=== PATIENT | male | born 1965 | race Caucasian/White ===

== ENCOUNTER 2025-04-08 08:24 | Inpatient (IN) | payer OTHER ==
[2025-04-08] VITALS (8 sets, daily range): BP systolic 124–131; BP diastolic 79–86; PULSE 87–99; RESP 18–20; TEMP 36.2–36.8; O2SAT 96–97
[~2025-04-08] VITALS: Ht 162.6 cm; Wt 50.9 kg
[~2025-04-08 08:24] MED LIST: ASPI-1497 PO; ATOR-388 PO; COR3 PO; GABA-1180 PO; TRAM50TA3 PO
[2025-04-08 08:58] LABS: BASOPHILS % 1.0 % (0.0-2.0); EOSINOPHILS % 3.1 % (0.0-5.0); HEMATOCRIT. 43.4 % (42.0-52.0); HEMOGLOBIN. 14.4 g/dL (14.0-18.0); LYMPHOCYTES % 11.0 % (20.0-50.0); MEAN PLATELET VOLUME 8.2 fl (7.4-10.4); MONOCYTES % 9.2 % (2.0-8.0); NEUTROPHILS % 75.7 % (40.0-76.0); PLATELET 254 x1000/uL (130-400); RED BLOOD CELL COUNT 4.85 mill/uL (4.7-6.1); RED CELL DISTRIBUTION WIDTH 13.9 % (11.6-14.6)
[2025-04-08] MEDS: FAMOTIDINE 20MG/2ML VIAL IV SCH (09:12)
[2025-04-08] MEDS: METHYLPREDNISOLONE SOD SUCC 125MG/2ML (ACT-O-VIAL) IV SCH (09:12)
[2025-04-08 09:14] LABS: CREATININE 1.0 mg/dL (0.6-1.3); UREA NITROGEN BLOOD 20 mg/dL (9-23)
[2025-04-08 09:16] LABS: TROPONIN I HIGH SENSITIVITY 18 ng/L (3.0-53)
[2025-04-08] MEDS: ALBUTEROL (0.083%) 2.5MG/3ML NEB HHN SCH (09:20)
[2025-04-08] MEDS: IPRATROPIUM BROMIDE (0.02%) 0.5MG/2.5ML NEB HHN SCH (09:20)
[2025-04-08] MEDS ORDERED: ONDANSETRON HCL 4MG/2ML INJ IV PRN (12:15)
[2025-04-08] MEDS ORDERED: ACETAMINOPHEN 325MG TABLET PO PRN (12:15)
[2025-04-08] MEDS ORDERED: INFLUENZA VACCINE 05/PF 0.5 ML SYRINGE IM ONE (14:00)
[2025-04-08] MEDS ORDERED: PNEUMOCOCCAL 20-VAL CONJ-DIP CRM 0.5ML IM ONE (14:00)
[2025-04-08] MEDS: GABAPENTIN 300MG CAPSULE PO SCH (16:27)
[2025-04-08] MEDS ORDERED: QUET50TA PO (19:14)
[2025-04-08] MEDS: IPRATROPIUM/ALBUTEROL 0.5-3(2.5)MG/3ML NEB HHN SCH (20:32)
[2025-04-08 20:43] LABS: TROPONIN I HIGH SENSITIVITY 14 ng/L (3.0-53)
[2025-04-08] MEDS ORDERED: ENOXAPARIN 40MG/0.4ML SYR SUBCUT SCH (21:00)
[2025-04-08] MEDS: QUETIAPINE FUMARATE 50MG TABLET PO PRN (21:23)
[2025-04-08] MEDS ORDERED: HALOPERIDOL 5MG TABLET PO PRN (22:00)
[2025-04-08] MEDS: HALOPERIDOL LACTATE 5MG/ML VIAL IM PRN (22:14)
[2025-04-08] MEDS: TRAMADOL 50MG TABLET PO PRN (22:14)
[2025-04-09 01:31] VITALS: PULSE 96; RESP 20; O2SAT 97
[2025-04-09] MEDS: ENOXAPARIN 40MG/0.4ML SYR SUBCUT SCH (10:26)
[2025-04-09] MEDS ORDERED: NALOXONE HCL 0.4MG/ML VIAL IV PRN (11:15)
[2025-04-09] MEDS: GUAIFENESIN 600MG ER TABLET PO SCH (11:42)
[2025-04-09 12:00] VITALS: BP 94/59; PULSE 80; RESP 18; TEMP 36.6; O2SAT 98
[2025-04-09] MEDS: DOXYCYCLINE 100MG/100ML 100 ML IV SCH (13:12)
[2025-04-09] MEDS: CEFTRIAXONE 1GM/50ML 50 ML IV SCH (14:30)
[2025-04-09 16:00] VITALS: BP 118/79; PULSE 86; RESP 18; TEMP 37.1; O2SAT 100
[2025-04-09] MEDS: BUDESONIDE 0.5MG/2ML NEB HHN SCH (19:47)
[2025-04-09 20:19] VITALS: BP 113/76; PULSE 89; RESP 18; TEMP 36.6; O2SAT 98
[2025-04-09 20:40] VITALS: PULSE 85; RESP 24; O2SAT 99
[2025-04-10 00:13] VITALS: BP 123/86; PULSE 98; RESP 18; TEMP 36.6; O2SAT 96
[2025-04-10] MEDS: IPRATROPIUM/ALBUTEROL 0.5-3(2.5)MG/3ML NEB HHN SCH (01:49)
[2025-04-10 01:50] VITALS: PULSE 76; RESP 14; O2SAT 100
[2025-04-10 04:10] VITALS: BP 134/82; PULSE 83; RESP 19; TEMP 36.7; O2SAT 98
[2025-04-10 07:38] LABS: INFLUENZA TYPE A Presumptive Negative (Pres. Neg.); INFLUENZA TYPE B Presumptive Negative (Pres. Neg.); RESPIRATORY SYNCYTIAL VIRUS Not Detected (Not Detectd)
[2025-04-10 09:00] VITALS: PULSE 86; RESP 20; O2SAT 96
[2025-04-10] MEDS ORDERED: DOXY100C5 MT (09:22)
[2025-04-10] MEDS ORDERED: FLUT1DIS3 INH (09:22)
[2025-04-10] MEDS ORDERED: ALBU18HF2 IH (09:22)
[2025-04-10 10:49] VITALS: BP 132/82; PULSE 86; RESP 20; TEMP 98
== END 2025-04-10 11:00 | disposition home or self-care (01) | DRG 133 ==
LOC: ER 08:24 → 7WST 10:14 → EDBEDREQ 10:17 → EDBEDREQTM 10:17 → ENRESERV 10:27
PROVIDERS: ADMIT Internal Medicine; ATTEND Internal Medicine
DX: J96.01 Acute respiratory failure with hypoxia (principal); I11.0 Hypertensive heart disease with heart failure; I50.9 Heart failure, unspecified; R04.2 Hemoptysis; R07.89 Other chest pain; J40 Bronchitis, not specified as acute or chronic; J84.9 Interstitial pulmonary disease, unspecified; J44.89 Other specified chronic obstructive pulmonary disease; I45.81 Long QT syndrome; Z79.899 Other long term (current) drug therapy; Z87.891 Personal history of nicotine dependence; M54.50 Low back pain, unspecified
CPT/HCPCS: 36415; 71045; 80048; 83735; 84484; 85025; 87420; 87804; 90686; 90732; 93005; 94070; 94640; 94664; 94760; 96374; 96375; 99285; J0696; J1308; J1630; J1650; J2919; J3490; J7626